=== PATIENT | male | born 1990 | race Caucasian/White ===

== ENCOUNTER 2021-01-08 18:30 | Emergency (ER) | payer OTHER, SELFPAY ==
[2021-01-08 18:32] VITALS: BP 165/82; PULSE 82; RESP 18; TEMP 36.7; O2SAT 100; BMI 27.3
--- NOTE | 2021-01-08 19:01 | EDS_ITS ---
HPI History of Present Illness Chief Complaint: Laceration Narrative Narrative: Patient is a 30-year-old male who presents with right hand laceration. He slipped getting off of a bus and sustained a laceration of his right hand. He is not exactly sure what he cut it on. Last tetanus im munization was 2 years ago. No other injuries. No paresthesias no weakness no loss of function. PFSH PFSH no medical history Home Medications NK 01/08/21 [History Last Taken Unknown] Allergy/AdvReac Type Severity Reaction Status Date / Time No Known Allergies Allergy Verified 01/08/21 18:33 Social History Smoking Status: Current some day smoker tobacco type: pipe ROS ROS ED Constitutional Constitutional ED: Reports other Details: No fever Cardiovascular Cardiovascular: Denies chest pain Respiratory/Chest Respiratory/Chest: Denies dyspnea Gastrointestinal Gastrointestinal: Denies diarrhea or vomiting EXAM Physical Exam Const Vital Signs: 01/08/21 18:32 Temperature 98.1 F Temperature Source Temporal Pulse Rate 82 Respiratory Rate 18 Blood Pressure 165/82 H Blood Pressure Mean 109 Pulse Ox 100 Oxygen Delivery Method Room Air Positive well nourished and well developed General Appearance ED: well developed HEENT normocephalic Eyes EOMs intact bilaterally Resp normal respiratory effort Cardio regular rate Extremity Extremity Narrative: Patient has a 2 cm laceration of the right hand in between the fourth and fifth MCPs he has normal range of motion the hand and all digits brisk capillary refill and normal sensation Skin Rashes: no rashes MDM MDM MDM Narrative Medical decision making narrative: Laceration was anesthetized with 4 cc of 1% lidocaine without epinephrine. Good anesthesia was achieved. Wound was cleansed with sterile saline. Wound was explored. No involvement of the joint. Motor function intact. Laceration was closed with 5 simple interrupted 4?0 nonabsorbable sutures. Patient advised on wound care and specific signs and symptoms to monitor for which should prompt her in here to the emergency department for reevaluation. All questions answered bedside. Patient discharged. Discharge Plan Triage Chief Complaint: Laceration ED Provider: Kevin Reed Dx/Rx/DC Orders Clinical Impression: Hand laceration Instructions: ED Laceration, Hand: All Closures Prescriptions: No Action NK RF: 0 Primary Care Provider: Koby Canales Referrals: Koby Canales MD [Primary Care Provider] - Disposition Disposition: Home, self care
[2021-01-08] MEDS: Lidocaine 1% (20 ml mdv) 20 ML Vial INFILT (19:33)
== END 2021-01-08 19:51 | disposition home or self-care (01) ==
PROVIDERS: Emergency Provider Emergency Medicine; PCP Family Medicine
DX: S61.411A Laceration without foreign body of right hand, initial encounter (principal); X58.XXXA Exposure to other specified factors, initial encounter
CPT/HCPCS: 12001; 99283